=== PATIENT | male | born 1950 | race Asian ===

== ENCOUNTER 2016-05-29 15:25 | Inpatient (IN) | payer MEDICARE, OTHER ==
[~2016-05-29] VITALS: Ht 162.6 cm; Wt 90.3 kg
[2016-05-29] MEDS ORDERED: DEXTROSE 50%-WATER 25 GM/50 ML SYRINGE IVP PRN (19:45)
[2016-05-29] MEDS: ATORVASTATIN CALCIUM 40 MG TABLET PO SCH (21:55)
[2016-05-29] MEDS: ACETAMINOPHEN 325 MG TABLET PO SCH (21:55)
[2016-05-29] MEDS: GABAPENTIN 100 MG CAPSULE PO SCH (21:55)
[2016-05-29] MEDS: DOCUSATE SODIUM 100 MG CAPSULE PO SCH (21:56)
[2016-05-29] MEDS: SENNA 187 MG TABLET PO SCH (21:56)
[2016-05-29] MEDS: OxyCODONE HCL 10 MG ER TABLET PO SCH (21:56)
[2016-05-29] MEDS: HEPARIN SODIUM,PORCINE 5,000 UNITS/ML VIAL SQ SCH (21:57)
[2016-05-29] MEDS: MUPIROCIN CALCIUM 2% 22 GM OINTMENT NASAL SCH (21:57)
[2016-05-29 22:07] LABS: GLUCOSE COMMENT 1 Received Meds; GLUCOSE,POINT OF CARE 150 MG/DL (70-110)
[2016-05-29 22:25] VITALS: BP 94/67
[2016-05-29] MEDS: IBUPROFEN 600 MG TABLET PO SCH (23:56)
[2016-05-30] VITALS: BP 93/55
[2016-05-30] MEDS: DOCUSATE SODIUM 283 MG/5 ML MINI-ENEMA PR PRN (05:40)
[2016-05-30 05:57] LABS: GLUCOSE,POINT OF CARE 138 MG/DL (70-110)
[2016-05-30 07:11] VITALS: BP 115/44
[2016-05-30 07:43] LABS: BASOPHILS % (AUTO) 0.6 % (0.0-2.0); EOSINOPHILS % (AUTO) 9.1 % (1.0-6.0); HEMOGLOBIN 8.5 g/dL (13.5-17.5); LYMPHOCYTES # (AUTO) 2.2 K/uL (1.0-4.8); LYMPHOCYTES % (AUTO) 20.1 % (22.0-44.0); MEAN CORPUSCULAR HEMOGLOBIN 28.7 pg (26.0-34.0); MEAN CORPUSCULAR HGB CONC 31.5 G/dL (31.0-37.0); MEAN CORPUSCULAR VOLUME 91 fL (80-100); MONOCYTES # (AUTO) 1.1 K/uL (0.1-1.0); MONOCYTES % (AUTO) 9.8 % (2.0-9.0); NEUTROPHILS # (AUTO) 6.6 K/uL (1.8-7.7); NEUTROPHILS % (AUTO) 60.4 % (40.0-70.0); PLATELET COUNT (AUTO) 383 K/uL (150-450); RED BLOOD CELL COUNT(AUTO) 2.97 MIL/uL (4.50-5.90); RED CELL DISTRIBUTION WIDTH 20.2 % (11.5-14.5); WHITE BLOOD COUNT (AUTO) 10.9 K/uL (4.5-11.0)
[2016-05-30 08:12] LABS: ALBUMIN 2.4 g/dL (3.4-5.0); BILIRUBIN,TOTAL 0.5 mg/dL (0.1-1.0); CALCIUM, TOTAL 8.2 mg/dL (8.8-10.5); CREATININE 9.05 mg/dL (0.60-1.30); TOTAL PROTEIN, SERUM 7.8 g/dL (6.4-8.2)
[2016-05-30] MEDS: CALCIUM ACETATE 667 MG CAPSULE PO SCH (08:47)
[2016-05-30] MEDS: METOPROLOL SUCCINATE 100 MG ER TABLET PO SCH ×2 (08:48→09:20)
[2016-05-30] MEDS: IBUPROFEN 600 MG TABLET PO SCH ×2 (08:48→16:00)
[2016-05-30] MEDS: OxyCODONE HCL 10 MG ER TABLET PO SCH (08:48)
[2016-05-30] MEDS: ASPIRIN 81 MG CHEWABLE TABLET PO SCH (08:48)
[2016-05-30] MEDS: DOCUSATE SODIUM 100 MG CAPSULE PO SCH ×2 (08:48→20:23)
[2016-05-30] MEDS: MUPIROCIN CALCIUM 2% 22 GM OINTMENT NASAL SCH ×2 (08:49→20:23)
[2016-05-30] MEDS: POLYETHYLENE GLYCOL 3350 17 GM PACKET PO SCH (08:49)
[2016-05-30] MEDS: HEPARIN SODIUM,PORCINE 5,000 UNITS/ML VIAL SQ SCH ×2 (08:49→20:23)
[2016-05-30] MEDS: ACETAMINOPHEN 325 MG TABLET PO SCH ×3 (08:49→20:23)
[2016-05-30] MEDS: INSULIN DETEMIR 100 UNITS/ML SQ SCH (08:51)
[2016-05-30] MEDS: SEVELAMER CARBONATE 800 MG TABLET PO SCH ×3 (08:52→16:50)
[2016-05-30 09:28] LABS: RBC MORPHOLOGY COMMENT ABNORMAL RBC MORPH
[2016-05-30 12:30] VITALS: BP 122/47
[2016-05-30] MEDS: VITAMIN B COMP/VIT C/FOLIC ACID CAPSULE PO SCH (12:55)
[2016-05-30 16:27] VITALS: BP 113/56
[2016-05-30 17:48] LABS: GLUCOSE,POINT OF CARE 154 MG/DL (70-110)
[2016-05-30 17:48] LABS: GLUCOSE COMMENT 1 Received Meds; GLUCOSE,POINT OF CARE 143 MG/DL (70-110)
[2016-05-30] MEDS: INSULIN ASPART 100 UNITS/ML SQ PRN (18:18)
[2016-05-30] MEDS: GABAPENTIN 100 MG CAPSULE PO SCH (20:22)
[2016-05-30] MEDS: SENNA 187 MG TABLET PO SCH (20:23)
[2016-05-30] MEDS: ATORVASTATIN CALCIUM 40 MG TABLET PO SCH (20:23)
[2016-05-30 21:31] LABS: APPEARANCE,URINE CLOUDY (CLEAR); GLUCOSE, URINE (UA) 100 mg/dL (NEGATIVE); KETONES,URINE NEGATIVE (NEGATIVE); LEUKOCYTE ESTERASE ,URINE SMALL (NEGATIVE); OCCULT BLOOD,URINE LARGE (NEGATIVE); PH,URINE 6.5 (5.0-8.0); PROTEIN,URINE SEE CONFIRM (NEGATIVE)
[2016-05-30 21:36] LABS: ADD UA MICROSCOPIC YES
[2016-05-30 21:39] LABS: SULFOSALICYLIC ACID,URINE 2+ (Negative)
[2016-05-30 21:41] LABS: SQUAMOUS EPITHELIAL CELL,UR Many /LPF (None Seen); TRANSITIONAL EPI CELLS,URINE Moderate /LPF (None Seen)
[2016-05-30 21:43] LABS: OTHER CASTS, URINE WAXY CASTS 1+ /LPF (None Seen)
[2016-05-30 23:51] LABS: GLUCOSE,POINT OF CARE 140 MG/DL (70-110)
[2016-05-31 00:45] VITALS: BP 112/69
[2016-05-31] MEDS: DOCUSATE SODIUM 283 MG/5 ML MINI-ENEMA PR PRN (05:39)
[2016-05-31 05:57] LABS: GLUCOSE,POINT OF CARE 99 MG/DL (70-110)
[2016-05-31] MEDS: CALCIUM ACETATE 667 MG CAPSULE PO SCH (07:16)
[2016-05-31] MEDS: SEVELAMER CARBONATE 800 MG TABLET PO SCH ×3 (07:16→18:04)
[2016-05-31 07:17] VITALS: BP 144/74
[2016-05-31] MEDS: IBUPROFEN 600 MG TABLET PO SCH ×4 (07:17→23:31)
[2016-05-31] MEDS: ASPIRIN 81 MG CHEWABLE TABLET PO SCH (09:17)
[2016-05-31] MEDS: DOCUSATE SODIUM 100 MG CAPSULE PO SCH ×2 (09:17→20:34)
[2016-05-31] MEDS: MUPIROCIN CALCIUM 2% 22 GM OINTMENT NASAL SCH ×2 (09:17→20:42)
[2016-05-31] MEDS: HEPARIN SODIUM,PORCINE 5,000 UNITS/ML VIAL SQ SCH ×2 (09:18→20:34)
[2016-05-31] MEDS: POLYETHYLENE GLYCOL 3350 17 GM PACKET PO SCH (09:18)
[2016-05-31] MEDS: VITAMIN B COMP/VIT C/FOLIC ACID CAPSULE PO SCH (09:18)
[2016-05-31] MEDS: ACETAMINOPHEN 325 MG TABLET PO SCH ×3 (09:18→20:34)
[2016-05-31] MEDS: EPOETIN ALFA 10,000 UNITS/ML VIAL SQ SCH (09:19)
[2016-05-31] MEDS: INSULIN DETEMIR 100 UNITS/ML SQ SCH (09:35)
[2016-05-31 12:27] LABS: GLUCOSE,POINT OF CARE 133 MG/DL (70-110)
[2016-05-31 15:15] VITALS: BP 135/70
[2016-05-31 18:07] LABS: GLUCOSE,POINT OF CARE 114 MG/DL (70-110)
[2016-05-31] MEDS: ATORVASTATIN CALCIUM 40 MG TABLET PO SCH (20:33)
[2016-05-31] MEDS: GABAPENTIN 100 MG CAPSULE PO SCH (20:33)
[2016-05-31] MEDS: SENNA 187 MG TABLET PO SCH (20:34)
[2016-05-31] MEDS: INSULIN ASPART 100 UNITS/ML SQ PRN (20:40)
[2016-05-31 21:22] LABS: GLUCOSE COMMENT 1 Received Meds; GLUCOSE,POINT OF CARE 162 MG/DL (70-110)
[2016-06-01 00:59] VITALS: BP 118/64
[2016-06-01] MEDS: DOCUSATE SODIUM 283 MG/5 ML MINI-ENEMA PR PRN (04:23)
[2016-06-01 06:22] LABS: GLUCOSE,POINT OF CARE 116 MG/DL (70-110)
[2016-06-01 06:52] LABS: BASOPHILS % (AUTO) 0.4 % (0.0-2.0); EOSINOPHILS % (AUTO) 6.4 % (1.0-6.0); HEMATOCRIT 26.6 % (41-53); HEMOGLOBIN 8.4 g/dL (13.5-17.5); LYMPHOCYTES % (AUTO) 14.3 % (22.0-44.0); MEAN CORPUSCULAR HEMOGLOBIN 28.6 pg (26.0-34.0); MEAN CORPUSCULAR HGB CONC 31.6 G/dL (31.0-37.0); MEAN CORPUSCULAR VOLUME 91 fL (80-100); MONOCYTES # (AUTO) 1.5 K/uL (0.1-1.0); MONOCYTES % (AUTO) 10.6 % (2.0-9.0); NEUTROPHILS # (AUTO) 9.6 K/uL (1.8-7.7); NEUTROPHILS % (AUTO) 68.3 % (40.0-70.0); PLATELET COUNT (AUTO) 358 K/uL (150-450); RED BLOOD CELL COUNT(AUTO) 2.94 MIL/uL (4.50-5.90); RED CELL DISTRIBUTION WIDTH 21.9 % (11.5-14.5)
[2016-06-01] MEDS ORDERED: LIDOCAINE HCL/PF 1% 2 ML VIAL IM ONE (06:58)
[2016-06-01 07:15] LABS: HEMOGLOBIN A1C 6.9 % (4.5-6.2)
[2016-06-01 07:24] LABS: CALCIUM, TOTAL 8.3 mg/dL (8.8-10.5); MAGNESIUM 2.3 mg/dL (1.80-2.40); PHOSPHORUS 8.4 mg/dL (2.5-4.9)
[2016-06-01 07:25] VITALS: BP 119/68
[2016-06-01] MEDS: CALCIUM ACETATE 667 MG CAPSULE PO SCH (07:25)
[2016-06-01] MEDS: IBUPROFEN 600 MG TABLET PO SCH (07:25)
[2016-06-01] MEDS: SEVELAMER CARBONATE 800 MG TABLET PO SCH ×3 (07:25→17:51)
[2016-06-01 07:42] LABS: POTASSIUM 5.2 mmol/L (3.5-5.1)
[2016-06-01] MEDS ORDERED: SODIUM CHLORIDE 0.9% 100 ML ONE (08:36)
[2016-06-01] MEDS: POLYETHYLENE GLYCOL 3350 17 GM PACKET PO SCH (08:45)
[2016-06-01] MEDS: ASPIRIN 81 MG CHEWABLE TABLET PO SCH (08:46)
[2016-06-01] MEDS: VITAMIN B COMP/VIT C/FOLIC ACID CAPSULE PO SCH (08:46)
[2016-06-01] MEDS: METOPROLOL SUCCINATE 100 MG ER TABLET PO SCH (08:46)
[2016-06-01] MEDS: DOCUSATE SODIUM 100 MG CAPSULE PO SCH ×2 (08:46→22:01)
[2016-06-01] MEDS: HEPARIN SODIUM,PORCINE 5,000 UNITS/ML VIAL SQ SCH ×2 (08:46→22:02)
[2016-06-01] MEDS: MUPIROCIN CALCIUM 2% 22 GM OINTMENT NASAL SCH ×2 (08:47→22:01)
[2016-06-01] MEDS: ACETAMINOPHEN 325 MG TABLET PO SCH ×4 (08:47→22:02)
[2016-06-01] MEDS: INSULIN DETEMIR 100 UNITS/ML SQ SCH (08:49)
[2016-06-01] MEDS ORDERED: SODIUM CHLORIDE 0.9% 1,000 ML IV ONE ×2 (13:01)
[2016-06-01 13:02] LABS: RBC MORPHOLOGY COMMENT ABNORMAL RBC MORPH
[2016-06-01] MEDS ORDERED: 0.9% SODIUM CHLORIDE 10 ML SYRINGE IVP PRN (14:15)
[2016-06-01 15:00] VITALS: BP 117/60
[2016-06-01] MEDS ORDERED: IBUPROFEN 600 MG TABLET PO PRN (16:00)
[2016-06-01 17:46] LABS: GLUCOSE,POINT OF CARE 98 MG/DL (70-110)
[2016-06-01] MEDS: SOD FERRIC GLUC COMPLX/SUCROSE 125 MG in SODIUM CHLORIDE 0.9% 100 ML IV SCH (19:12)
[2016-06-01] MEDS ORDERED: LIDOCAINE HCL/PF 1% 2 ML VIAL ID PRN (19:15)
[2016-06-01] MEDS ORDERED: MANNITOL 25%-12.5 GM/50 ML VIAL IVP PRN (19:15)
[2016-06-01 21:07] LABS: GLUCOSE,POINT OF CARE 122 MG/DL (70-110)
[2016-06-01 21:17] LABS: GLUCOSE,POINT OF CARE 118 MG/DL (70-110)
[2016-06-01] MEDS: GABAPENTIN 100 MG CAPSULE PO SCH (22:01)
[2016-06-01] MEDS: SENNA 187 MG TABLET PO SCH (22:01)
[2016-06-01] MEDS: ATORVASTATIN CALCIUM 40 MG TABLET PO SCH (22:01)
[2016-06-02] VITALS: BP 136/59
[2016-06-02] MEDS ORDERED: SEVEC800 PO (03:09)
[2016-06-02] MEDS ORDERED: METO-325 PO (03:09)
[2016-06-02] MEDS ORDERED: GABA-529 PO (03:09)
[2016-06-02] MEDS ORDERED: ATOR40TA28 PO (03:09)
[2016-06-02] MEDS ORDERED: ASPI81 PO (03:09)
[2016-06-02] MEDS ORDERED: PHOSLOC PO (03:09)
[2016-06-02] MEDS: OxyCODONE HCL 5 MG IR TABLET PO PRN (05:33)
[2016-06-02 05:43] LABS: GLUCOSE,POINT OF CARE 87 MG/DL (70-110)
[2016-06-02 07:35] VITALS: BP 138/47
[2016-06-02] MEDS: SEVELAMER CARBONATE 800 MG TABLET PO SCH ×4 (08:30→17:53)
[2016-06-02] MEDS: CALCIUM ACETATE 667 MG CAPSULE PO SCH (08:35)
[2016-06-02] MEDS: ACETAMINOPHEN 325 MG TABLET PO SCH ×3 (08:35→20:26)
[2016-06-02] MEDS: MUPIROCIN CALCIUM 2% 22 GM OINTMENT NASAL SCH ×2 (08:41→20:25)
[2016-06-02] MEDS: DOCUSATE SODIUM 100 MG CAPSULE PO SCH ×3 (08:41→20:25)
[2016-06-02] MEDS: ASPIRIN 81 MG CHEWABLE TABLET PO SCH (08:41)
[2016-06-02] MEDS: POLYETHYLENE GLYCOL 3350 17 GM PACKET PO SCH ×2 (08:41→09:00)
[2016-06-02] MEDS: EPOETIN ALFA 10,000 UNITS/ML VIAL SQ SCH (08:41)
[2016-06-02] MEDS: HEPARIN SODIUM,PORCINE 5,000 UNITS/ML VIAL SQ SCH (08:41)
[2016-06-02] MEDS: VITAMIN B COMP/VIT C/FOLIC ACID CAPSULE PO SCH (08:42)
[2016-06-02] MEDS: METOPROLOL SUCCINATE 100 MG ER TABLET PO SCH (08:42)
[2016-06-02] MEDS: INSULIN DETEMIR 100 UNITS/ML SQ SCH (09:00)
[2016-06-02] MEDS: ONDANSETRON HCL 4 MG TABLET PO PRN (09:27)
[2016-06-02] MEDS ORDERED: MAG HYDROX/AL HYDROX/SIMETH 30 ML SUSP UDCUP PO ONE (09:30)
[2016-06-02] MEDS: PANTOPRAZOLE SODIUM 40 MG DR TABLET PO SCH (10:29)
[2016-06-02] MEDS: 0.9% SODIUM CHLORIDE 10 ML SYRINGE IVP SCH ×3 (10:29→23:17)
[2016-06-02] MEDS: TraMADol HCL 50 MG TABLET PO PRN (10:29)
[2016-06-02 11:32] LABS: BASOPHILS % (AUTO) 0.1 % (0.0-2.0); EOSINOPHILS % (AUTO) 3.3 % (1.0-6.0); HEMATOCRIT 27.1 % (41-53); HEMOGLOBIN 8.4 g/dL (13.5-17.5); LYMPHOCYTES # (AUTO) 1.7 K/uL (1.0-4.8); LYMPHOCYTES % (AUTO) 12.2 % (22.0-44.0); MEAN CORPUSCULAR HEMOGLOBIN 28.3 pg (26.0-34.0); MEAN CORPUSCULAR VOLUME 91 fL (80-100); MONOCYTES # (AUTO) 1.3 K/uL (0.1-1.0); MONOCYTES % (AUTO) 9.7 % (2.0-9.0); NEUTROPHILS # (AUTO) 10.4 K/uL (1.8-7.7); NEUTROPHILS % (AUTO) 74.7 % (40.0-70.0); PLATELET COUNT (AUTO) 327 K/uL (150-450); RBC MORPHOLOGY COMMENT ABNORMAL RBC MORPH; RED BLOOD CELL COUNT(AUTO) 2.97 MIL/uL (4.50-5.90); RED CELL DISTRIBUTION WIDTH 21.6 % (11.5-14.5); WHITE BLOOD COUNT (AUTO) 13.9 K/uL (4.5-11.0)
[2016-06-02 12:13] LABS: GLUCOSE,POINT OF CARE 137 MG/DL (70-110)
[2016-06-02 12:30] VITALS: BP 127/93
[2016-06-02 15:30] VITALS: BP 105/74
[2016-06-02] MEDS: SOD FERRIC GLUC COMPLX/SUCROSE 125 MG in SODIUM CHLORIDE 0.9% 100 ML IV SCH (17:53)
[2016-06-02] MEDS ORDERED: SODIUM CHLORIDE 0.9% 250 ML IV ONE (17:56)
[2016-06-02] MEDS: INSULIN ASPART 100 UNITS/ML SQ PRN ×2 (18:08→22:46)
[2016-06-02 18:56] VITALS: BP 105/74
[2016-06-02] MEDS: SENNA 187 MG TABLET PO SCH (20:25)
[2016-06-02] MEDS: GABAPENTIN 100 MG CAPSULE PO SCH (20:26)
[2016-06-02] MEDS: ATORVASTATIN CALCIUM 40 MG TABLET PO SCH (20:26)
[2016-06-02 22:52] LABS: GLUCOSE COMMENT 1 Received Meds; GLUCOSE,POINT OF CARE 158 MG/DL (70-110)
[2016-06-02 22:52] LABS: GLUCOSE COMMENT 1 Received Meds; GLUCOSE,POINT OF CARE 195 MG/DL (70-110)
[2016-06-03] VITALS: BP 103/77
[2016-06-03 02:29] VITALS: BP 103/77
[2016-06-03 06:06] LABS: GLUCOSE,POINT OF CARE 114 MG/DL (70-110)
[2016-06-03 07:00] VITALS: BP 104/54
[2016-06-03 07:15] LABS: BASOPHILS % (AUTO) 0.7 % (0.0-2.0); EOSINOPHILS # (AUTO) 0.69 K/uL (0.00-0.70); EOSINOPHILS % (AUTO) 4.56 % (1.0-6.0); HEMATOCRIT 26.6 % (41-53); HEMOGLOBIN 8.6 g/dL (13.5-17.5); LYMPHOCYTES # (AUTO) 2.2 K/uL (1.0-4.8); LYMPHOCYTES % (AUTO) 14.7 % (22.0-44.0); MEAN CORPUSCULAR HGB CONC 32.4 G/dL (31.0-37.0); MEAN CORPUSCULAR VOLUME 89 fL (80-100); MONOCYTES # (AUTO) 1.7 K/uL (0.1-1.0); MONOCYTES % (AUTO) 11.4 % (2.0-9.0); NEUTROPHILS # (AUTO) 10.4 K/uL (1.8-7.7); NEUTROPHILS % (AUTO) 68.7 % (40.0-70.0); PLATELET COUNT (AUTO) 319 K/uL (150-450); RED BLOOD CELL COUNT(AUTO) 2.97 MIL/uL (4.50-5.90); RED CELL DISTRIBUTION WIDTH 20.7 % (11.5-14.5); WHITE BLOOD COUNT (AUTO) 15.1 K/uL (4.5-11.0)
[2016-06-03 07:30] LABS: ALBUMIN 2.2 g/dL (3.4-5.0); BILIRUBIN,TOTAL 0.5 mg/dL (0.1-1.0); CREATININE 10.2 mg/dL (0.60-1.30); POTASSIUM 5.2 mmol/L (3.5-5.1); TOTAL PROTEIN, SERUM 7.9 g/dL (6.4-8.2)
[2016-06-03 07:41] LABS: PROCALCITONIN (PCT) 1.43 ng/mL (<0.50)
[2016-06-03] MEDS: CALCIUM ACETATE 667 MG CAPSULE PO SCH (07:51)
[2016-06-03] MEDS: SEVELAMER CARBONATE 800 MG TABLET PO SCH ×3 (07:51→17:09)
[2016-06-03] MEDS: METOPROLOL SUCCINATE 100 MG ER TABLET PO SCH (09:00)
[2016-06-03] MEDS: POLYETHYLENE GLYCOL 3350 17 GM PACKET PO SCH (09:00)
[2016-06-03] MEDS: PANTOPRAZOLE SODIUM 40 MG DR TABLET PO SCH (09:12)
[2016-06-03] MEDS: DOCUSATE SODIUM 100 MG CAPSULE PO SCH ×2 (09:12→20:56)
[2016-06-03] MEDS: ACETAMINOPHEN 325 MG TABLET PO SCH ×3 (09:12→20:56)
[2016-06-03] MEDS: VITAMIN B COMP/VIT C/FOLIC ACID CAPSULE PO SCH (09:12)
[2016-06-03] MEDS: ASPIRIN 81 MG CHEWABLE TABLET PO SCH (09:12)
[2016-06-03] MEDS: MUPIROCIN CALCIUM 2% 22 GM OINTMENT NASAL SCH ×2 (09:12→20:56)
[2016-06-03] MEDS: 0.9% SODIUM CHLORIDE 10 ML SYRINGE IVP SCH ×2 (09:12→16:10)
[2016-06-03] MEDS: INSULIN DETEMIR 100 UNITS/ML SQ SCH (09:18)
[2016-06-03 09:43] LABS: RBC MORPHOLOGY COMMENT ABNORMAL RBC MORPH
[2016-06-03 10:12] LABS: APPEARANCE,URINE CLOUDY (CLEAR); GLUCOSE, URINE (UA) 100 mg/dL (NEGATIVE); KETONES,URINE NEGATIVE (NEGATIVE); LEUKOCYTE ESTERASE ,URINE NEGATIVE (NEGATIVE); OCCULT BLOOD,URINE MODERATE (NEGATIVE); PROTEIN,URINE SEE CONFIRM (NEGATIVE)
[2016-06-03 10:16] LABS: SULFOSALICYLIC ACID,URINE 3+ (Negative)
[2016-06-03 10:18] LABS: SQUAMOUS EPITHELIAL CELL,UR Few /LPF (None Seen)
[2016-06-03 10:19] LABS: COARSE GRANULAR CASTS,URINE 0-2 /LPF (None Seen)
[2016-06-03 10:20] LABS: FINE GRANULAR CASTS,URINE 0-2 /LPF (None Seen)
[2016-06-03 11:01] VITALS: BP 104/54
[2016-06-03] MEDS ORDERED: IOVERSOL 350 MG/ML 150 ML VIAL ONE (12:00)
[2016-06-03] MEDS ORDERED: SODIUM CHLORIDE 0.9% 100 ML ONE (12:00)
[2016-06-03 12:07] LABS: GLUCOSE,POINT OF CARE 159 MG/DL (70-110)
[2016-06-03] MEDS: INSULIN ASPART 100 UNITS/ML SQ PRN ×2 (12:36→17:26)
[2016-06-03 15:30] VITALS: BP 119/68
[2016-06-03 15:42] VITALS: BP 119/68
[2016-06-03] MEDS ORDERED: LIDOCAINE HCL/PF 1% 2 ML VIAL IM ONE (16:17)
[2016-06-03] MEDS: SOD FERRIC GLUC COMPLX/SUCROSE 125 MG in SODIUM CHLORIDE 0.9% 100 ML IV SCH (17:09)
[2016-06-03 18:27] LABS: GLUCOSE COMMENT 1 Received Meds; GLUCOSE,POINT OF CARE 168 MG/DL (70-110)
[2016-06-03] MEDS ORDERED: SODIUM CHLORIDE 0.9% 1,000 ML IV ONE ×2 (18:27)
[2016-06-03] MEDS ORDERED: VANCOMYCIN HCL 1.5 GM in DEXTROSE 5%-WATER 250 ML IV ONE (18:30)
[2016-06-03] MEDS: SENNA 187 MG TABLET PO SCH (20:56)
[2016-06-03] MEDS: GABAPENTIN 100 MG CAPSULE PO SCH (20:56)
[2016-06-03] MEDS: ATORVASTATIN CALCIUM 40 MG TABLET PO SCH (20:56)
[2016-06-03 22:06] LABS: GLUCOSE,POINT OF CARE 130 MG/DL (70-110)
[2016-06-03] MEDS: CefTAZidime PENTAHYDRATE 2 GM in DEXTROSE 5%-WATER 50 ML IV SCH (22:34)
[2016-06-04] VITALS (7 sets, daily range): BP systolic 111–128; BP diastolic 64–96
[2016-06-04] MEDS: 0.9% SODIUM CHLORIDE 10 ML SYRINGE IVP SCH ×3 (02:20→16:14)
[2016-06-04 06:07] LABS: GLUCOSE,POINT OF CARE 74 MG/DL (70-110)
[2016-06-04 07:26] LABS: BASOPHILS % (AUTO) 0.3 % (0.0-2.0); EOSINOPHILS % (AUTO) 3.7 % (1.0-6.0); HEMATOCRIT 26.2 % (41-53); HEMOGLOBIN 8.3 g/dL (13.5-17.5); LYMPHOCYTES # (AUTO) 1.6 K/uL (1.0-4.8); LYMPHOCYTES % (AUTO) 12.1 % (22.0-44.0); MEAN CORPUSCULAR HEMOGLOBIN 28.4 pg (26.0-34.0); MEAN CORPUSCULAR HGB CONC 31.5 G/dL (31.0-37.0); MEAN CORPUSCULAR VOLUME 90 fL (80-100); MONOCYTES # (AUTO) 1.7 K/uL (0.1-1.0); MONOCYTES % (AUTO) 12.9 % (2.0-9.0); NEUTROPHILS # (AUTO) 9.2 K/uL (1.8-7.7); PLATELET COUNT (AUTO) 341 K/uL (150-450); RED BLOOD CELL COUNT(AUTO) 2.91 MIL/uL (4.50-5.90); RED CELL DISTRIBUTION WIDTH 21.3 % (11.5-14.5)
[2016-06-04] MEDS: DOCUSATE SODIUM 100 MG CAPSULE PO SCH ×2 (08:13→20:11)
[2016-06-04] MEDS: VITAMIN B COMP/VIT C/FOLIC ACID CAPSULE PO SCH (08:14)
[2016-06-04] MEDS: ASPIRIN 81 MG CHEWABLE TABLET PO SCH (08:15)
[2016-06-04] MEDS: PANTOPRAZOLE SODIUM 40 MG DR TABLET PO SCH (08:15)
[2016-06-04] MEDS: SEVELAMER CARBONATE 800 MG TABLET PO SCH ×3 (08:17→18:31)
[2016-06-04] MEDS: METOPROLOL SUCCINATE 100 MG ER TABLET PO SCH (08:17)
[2016-06-04] MEDS: ACETAMINOPHEN 325 MG TABLET PO SCH ×3 (08:18→20:11)
[2016-06-04] MEDS: CALCIUM ACETATE 667 MG CAPSULE PO SCH (08:19)
[2016-06-04] MEDS: POLYETHYLENE GLYCOL 3350 17 GM PACKET PO SCH (08:19)
[2016-06-04] MEDS: MUPIROCIN CALCIUM 2% 22 GM OINTMENT NASAL SCH ×2 (08:19→20:13)
[2016-06-04] MEDS: INSULIN DETEMIR 100 UNITS/ML SQ SCH (08:27)
[2016-06-04] MEDS: INSULIN ASPART 100 UNITS/ML SQ PRN ×2 (12:55→20:22)
[2016-06-04] MEDS: TraMADol HCL 50 MG TABLET PO PRN (12:55)
[2016-06-04 13:01] LABS: GLUCOSE COMMENT 1 Received Meds; GLUCOSE,POINT OF CARE 152 MG/DL (70-110)
[2016-06-04] MEDS ORDERED: VANCOMYCIN HCL 1 GM/D5% WATER 200 ML IV PRN (18:30)
[2016-06-04] MEDS: SOD FERRIC GLUC COMPLX/SUCROSE 125 MG in SODIUM CHLORIDE 0.9% 100 ML IV SCH (18:32)
[2016-06-04 18:42] LABS: GLUCOSE,POINT OF CARE 70 MG/DL (70-110)
[2016-06-04] MEDS: CefTAZidime PENTAHYDRATE 2 GM in DEXTROSE 5%-WATER 50 ML IV SCH (19:50)
[2016-06-04] MEDS: SENNA 187 MG TABLET PO SCH (20:11)
[2016-06-04] MEDS: ATORVASTATIN CALCIUM 40 MG TABLET PO SCH (20:12)
[2016-06-04] MEDS: GABAPENTIN 100 MG CAPSULE PO SCH (20:12)
[2016-06-04 20:42] LABS: GLUCOSE COMMENT 1 Received Meds; GLUCOSE,POINT OF CARE 176 MG/DL (70-110)
[2016-06-05 00:14] VITALS: BP 109/72
[2016-06-05] MEDS: 0.9% SODIUM CHLORIDE 10 ML SYRINGE IVP SCH ×3 (00:16→16:29)
[2016-06-05 01:20] VITALS: BP 109/72
[2016-06-05 06:32] LABS: GLUCOSE,POINT OF CARE 108 MG/DL (70-110)
[2016-06-05 07:30] VITALS: BP 118/69
[2016-06-05] MEDS: CALCIUM ACETATE 667 MG CAPSULE PO SCH (07:56)
[2016-06-05] MEDS: SEVELAMER CARBONATE 800 MG TABLET PO SCH ×3 (07:56→17:30)
[2016-06-05] MEDS: EPOETIN ALFA 10,000 UNITS/ML VIAL SQ SCH (08:45)
[2016-06-05] MEDS: ASPIRIN 81 MG CHEWABLE TABLET PO SCH (08:45)
[2016-06-05] MEDS: VITAMIN B COMP/VIT C/FOLIC ACID CAPSULE PO SCH (08:46)
[2016-06-05] MEDS: PANTOPRAZOLE SODIUM 40 MG DR TABLET PO SCH (08:46)
[2016-06-05] MEDS: METOPROLOL SUCCINATE 100 MG ER TABLET PO SCH (08:46)
[2016-06-05] MEDS: POLYETHYLENE GLYCOL 3350 17 GM PACKET PO SCH (08:47)
[2016-06-05] MEDS: ACETAMINOPHEN 325 MG TABLET PO SCH ×3 (08:47→20:05)
[2016-06-05] MEDS: DOCUSATE SODIUM 100 MG CAPSULE PO SCH ×2 (08:47→20:05)
[2016-06-05] MEDS: INSULIN DETEMIR 100 UNITS/ML SQ SCH (08:53)
[2016-06-05 12:07] LABS: GLUCOSE,POINT OF CARE 158 MG/DL (70-110)
[2016-06-05 12:38] VITALS: BP 118/69
[2016-06-05] MEDS: INSULIN ASPART 100 UNITS/ML SQ PRN (13:18)
[2016-06-05 15:35] VITALS: BP 110/62
[2016-06-05 15:39] VITALS: BP 110/62
[2016-06-05] MEDS: SOD FERRIC GLUC COMPLX/SUCROSE 125 MG in SODIUM CHLORIDE 0.9% 100 ML IV SCH (17:31)
[2016-06-05 18:52] LABS: GLUCOSE,POINT OF CARE 84 MG/DL (70-110)
[2016-06-05] MEDS: CefTRIAXone SODIUM 2 GM in DEXTROSE 5%-WATER 50 ML IV SCH (19:59)
[2016-06-05] MEDS: SENNA 187 MG TABLET PO SCH (20:05)
[2016-06-05] MEDS: GABAPENTIN 100 MG CAPSULE PO SCH (20:05)
[2016-06-05] MEDS: ATORVASTATIN CALCIUM 40 MG TABLET PO SCH (20:05)
[2016-06-05 21:12] LABS: GLUCOSE,POINT OF CARE 104 MG/DL (70-110)
[2016-06-06] MEDS: 0.9% SODIUM CHLORIDE 10 ML SYRINGE IVP SCH ×4 (02:35→16:24)
[2016-06-06 02:45] VITALS: BP 103/56
[2016-06-06 06:07] LABS: GLUCOSE COMMENT 1 Juice/Food/D50 Given; GLUCOSE,POINT OF CARE 69 MG/DL (70-110)
[2016-06-06 06:42] LABS: GLUCOSE,POINT OF CARE 86 MG/DL (70-110)
[2016-06-06 06:51] LABS: BASOPHILS % (AUTO) 0.2 % (0.0-2.0); EOSINOPHILS % (AUTO) 3.5 % (1.0-6.0); HEMATOCRIT 27.5 % (41-53); HEMOGLOBIN 8.7 g/dL (13.5-17.5); LYMPHOCYTES # (AUTO) 2.7 K/uL (1.0-4.8); LYMPHOCYTES % (AUTO) 14.5 % (22.0-44.0); MEAN CORPUSCULAR HEMOGLOBIN 28.7 pg (26.0-34.0); MEAN CORPUSCULAR HGB CONC 31.6 G/dL (31.0-37.0); MEAN CORPUSCULAR VOLUME 91 fL (80-100); MONOCYTES # (AUTO) 2.3 K/uL (0.1-1.0); MONOCYTES % (AUTO) 12.6 % (2.0-9.0); NEUTROPHILS # (AUTO) 12.9 K/uL (1.8-7.7); NEUTROPHILS % (AUTO) 69.2 % (40.0-70.0); PLATELET COUNT (AUTO) 334 K/uL (150-450); RED BLOOD CELL COUNT(AUTO) 3.03 MIL/uL (4.50-5.90); RED CELL DISTRIBUTION WIDTH 21.8 % (11.5-14.5); WHITE BLOOD COUNT (AUTO) 18.6 K/uL (4.5-11.0)
[2016-06-06 07:16] VITALS: BP 131/64
[2016-06-06 07:34] LABS: CALCIUM, TOTAL 9.4 mg/dL (8.8-10.5); CREATININE 10.75 mg/dL (0.60-1.30); MAGNESIUM 2.2 mg/dL (1.80-2.40); PHOSPHORUS 5.9 mg/dL (2.5-4.9)
[2016-06-06] MEDS: SEVELAMER CARBONATE 800 MG TABLET PO SCH ×3 (07:35→17:27)
[2016-06-06] MEDS: CALCIUM ACETATE 667 MG CAPSULE PO SCH (07:35)
[2016-06-06] MEDS: ACETAMINOPHEN 325 MG TABLET PO SCH ×3 (08:01→20:30)
[2016-06-06] MEDS: METOPROLOL SUCCINATE 100 MG ER TABLET PO SCH (08:02)
[2016-06-06] MEDS: VITAMIN B COMP/VIT C/FOLIC ACID CAPSULE PO SCH (08:02)
[2016-06-06] MEDS: ASPIRIN 81 MG CHEWABLE TABLET PO SCH (08:02)
[2016-06-06] MEDS: PANTOPRAZOLE SODIUM 40 MG DR TABLET PO SCH (08:02)
[2016-06-06] MEDS: POLYETHYLENE GLYCOL 3350 17 GM PACKET PO SCH (08:02)
[2016-06-06] MEDS: DOCUSATE SODIUM 100 MG CAPSULE PO SCH ×2 (08:02→20:30)
[2016-06-06] MEDS: INSULIN DETEMIR 100 UNITS/ML SQ SCH (08:17)
[2016-06-06 09:53] LABS: RBC MORPHOLOGY COMMENT ABNORMAL RBC MORPH
[2016-06-06 11:38] LABS: GLUCOSE,POINT OF CARE 106 MG/DL (70-110)
[2016-06-06] MEDS ORDERED: SODIUM CHLORIDE 0.9% 1,000 ML IV ONE ×2 (13:01→13:02)
[2016-06-06 15:39] VITALS: BP 137/91
[2016-06-06] MEDS: SOD FERRIC GLUC COMPLX/SUCROSE 125 MG in SODIUM CHLORIDE 0.9% 100 ML IV SCH (17:28)
[2016-06-06 17:46] LABS: GLUCOSE,POINT OF CARE 132 MG/DL (70-110)
[2016-06-06] MEDS ORDERED: VANCOMYCIN HCL 1 GM/D5% WATER 200 ML IV ONE (20:00)
[2016-06-06] MEDS: SENNA 187 MG TABLET PO SCH (20:30)
[2016-06-06] MEDS: CefTRIAXone SODIUM 2 GM in DEXTROSE 5%-WATER 50 ML IV SCH (20:30)
[2016-06-06] MEDS: ATORVASTATIN CALCIUM 40 MG TABLET PO SCH (20:30)
[2016-06-06] MEDS: GABAPENTIN 100 MG CAPSULE PO SCH (20:31)
[2016-06-06] MEDS: INSULIN ASPART 100 UNITS/ML SQ PRN (20:37)
[2016-06-06] MEDS: MetroNIDAZOLE 500 MG TABLET PO SCH (20:48)
[2016-06-06 21:46] LABS: GLUCOSE COMMENT 1 Received Meds; GLUCOSE,POINT OF CARE 164 MG/DL (70-110)
[2016-06-07] MEDS: 0.9% SODIUM CHLORIDE 10 ML SYRINGE IVP SCH ×4 (00:14→23:39)
[2016-06-07 05:00] VITALS: BP 115/60
[2016-06-07 05:42] LABS: GLUCOSE,POINT OF CARE 133 MG/DL (70-110)
[2016-06-07 06:34] LABS: BASOPHILS # (AUTO) 0.24 K/uL (0.00-0.20); BASOPHILS % (AUTO) 1.5 % (0.0-2.0); EOSINOPHILS # (AUTO) 0.64 K/uL (0.00-0.70); EOSINOPHILS % (AUTO) 3.97 % (1.0-6.0); HEMATOCRIT 26.9 % (41-53); HEMOGLOBIN 8.7 g/dL (13.5-17.5); LYMPHOCYTES # (AUTO) 1.8 K/uL (1.0-4.8); LYMPHOCYTES % (AUTO) 11.1 % (22.0-44.0); MEAN CORPUSCULAR HEMOGLOBIN 28.6 pg (26.0-34.0); MEAN CORPUSCULAR HGB CONC 32.2 G/dL (31.0-37.0); MEAN CORPUSCULAR VOLUME 89 fL (80-100); MONOCYTES % (AUTO) 12.5 % (2.0-9.0); NEUTROPHILS # (AUTO) 11.4 K/uL (1.8-7.7); NEUTROPHILS % (AUTO) 70.9 % (40.0-70.0); PLATELET COUNT (AUTO) 309 K/uL (150-450); RED BLOOD CELL COUNT(AUTO) 3.03 MIL/uL (4.50-5.90); RED CELL DISTRIBUTION WIDTH 21.9 % (11.5-14.5); WHITE BLOOD COUNT (AUTO) 16.1 K/uL (4.5-11.0)
[2016-06-07 07:05] LABS: RBC MORPHOLOGY COMMENT ABNORMAL RBC MORPH
[2016-06-07 07:26] VITALS: BP 130/82
[2016-06-07] MEDS: SEVELAMER CARBONATE 800 MG TABLET PO SCH ×4 (07:30→17:35)
[2016-06-07] MEDS: TraMADol HCL 50 MG TABLET PO PRN (07:43)
[2016-06-07] MEDS: CALCIUM ACETATE 667 MG CAPSULE PO SCH (07:43)
[2016-06-07] MEDS: MetroNIDAZOLE 500 MG TABLET PO SCH ×3 (08:16→20:39)
[2016-06-07] MEDS: ACETAMINOPHEN 325 MG TABLET PO SCH ×3 (08:16→20:39)
[2016-06-07] MEDS: ASPIRIN 81 MG CHEWABLE TABLET PO SCH (08:16)
[2016-06-07] MEDS: VITAMIN B COMP/VIT C/FOLIC ACID CAPSULE PO SCH (08:16)
[2016-06-07] MEDS: METOPROLOL SUCCINATE 100 MG ER TABLET PO SCH (08:16)
[2016-06-07] MEDS: POLYETHYLENE GLYCOL 3350 17 GM PACKET PO SCH (08:17)
[2016-06-07] MEDS: DOCUSATE SODIUM 100 MG CAPSULE PO SCH ×2 (08:17→20:39)
[2016-06-07] MEDS: PANTOPRAZOLE SODIUM 40 MG DR TABLET PO SCH (08:17)
[2016-06-07] MEDS: EPOETIN ALFA 10,000 UNITS/ML VIAL SQ SCH (08:18)
[2016-06-07] MEDS: INSULIN DETEMIR 100 UNITS/ML SQ SCH (08:18)
[2016-06-07 12:47] LABS: GLUCOSE,POINT OF CARE 178 MG/DL (70-110)
[2016-06-07 17:03] VITALS: BP 142/80
[2016-06-07] MEDS: SOD FERRIC GLUC COMPLX/SUCROSE 125 MG in SODIUM CHLORIDE 0.9% 100 ML IV SCH (17:34)
[2016-06-07] MEDS ORDERED: SODIUM CHLORIDE 0.9% 250 ML IV ONE (17:40)
[2016-06-07 18:07] LABS: GLUCOSE COMMENT 1 Received Meds; GLUCOSE,POINT OF CARE 176 MG/DL (70-110)
[2016-06-07] MEDS: GABAPENTIN 100 MG CAPSULE PO SCH (20:39)
[2016-06-07] MEDS: SENNA 187 MG TABLET PO SCH (20:39)
[2016-06-07] MEDS: ATORVASTATIN CALCIUM 40 MG TABLET PO SCH (20:39)
[2016-06-07] MEDS: CefTRIAXone SODIUM 2 GM in DEXTROSE 5%-WATER 50 ML IV SCH (20:39)
[2016-06-07 21:12] LABS: GLUCOSE,POINT OF CARE 179 MG/DL (70-110)
[2016-06-07 23:47] VITALS: BP 118/68
[2016-06-08] MEDS: ATORVASTATIN CALCIUM 40 MG TABLET PO SCH
[2016-06-08 05:57] LABS: GLUCOSE,POINT OF CARE 132 MG/DL (70-110)
[2016-06-08 07:03] VITALS: BP 133/74
[2016-06-08] MEDS: SEVELAMER CARBONATE 800 MG TABLET PO SCH ×3 (07:30→17:00)
[2016-06-08] MEDS: CALCIUM ACETATE 667 MG CAPSULE PO SCH (07:30)
[2016-06-08] MEDS: ACETAMINOPHEN 325 MG TABLET PO SCH ×3 (07:35→16:51)
[2016-06-08] MEDS: 0.9% SODIUM CHLORIDE 10 ML SYRINGE IVP SCH ×3 (07:58→16:52)
[2016-06-08] MEDS: POLYETHYLENE GLYCOL 3350 17 GM PACKET PO SCH (09:00)
[2016-06-08] MEDS: DOCUSATE SODIUM 100 MG CAPSULE PO SCH ×2 (09:00)
[2016-06-08] MEDS: VITAMIN B COMP/VIT C/FOLIC ACID CAPSULE PO SCH (09:00)
[2016-06-08] MEDS: METOPROLOL SUCCINATE 100 MG ER TABLET PO SCH (09:00)
[2016-06-08] MEDS: ASPIRIN 81 MG CHEWABLE TABLET PO SCH (09:00)
[2016-06-08] MEDS: MetroNIDAZOLE 500 MG TABLET PO SCH ×2 (09:00→16:51)
[2016-06-08 09:10] VITALS: BP 136/79
[2016-06-08] MEDS: PANTOPRAZOLE SODIUM 40 MG DR TABLET PO SCH (09:10)
[2016-06-08] MEDS: ONDANSETRON HCL 4 MG TABLET PO PRN (09:10)
[2016-06-08 11:22] LABS: GLUCOSE,POINT OF CARE 155 MG/DL (70-110)
[2016-06-08] MEDS ORDERED: LIDOCAINE HCL/PF 1% 2 ML VIAL INJ ONE (12:00)
[2016-06-08 14:50] VITALS: BP 143/83
[2016-06-08 16:50] VITALS: BP 143/83
[2016-06-08 17:27] LABS: GLUCOSE,POINT OF CARE 182 MG/DL (70-110)
[2016-06-08] MEDS ORDERED: SODIUM CHLORIDE 0.9% 2,000 ML IV ONE (19:58)
[2016-06-08] MEDS: SOD FERRIC GLUC COMPLX/SUCROSE 125 MG in SODIUM CHLORIDE 0.9% 100 ML IV SCH (21:01)
[2016-06-08] MEDS ORDERED: MANNITOL 25%-12.5 GM/50 ML VIAL IVP PRN (21:45)
[2016-06-08] MEDS ORDERED: ALBUMIN HUMAN 25%-12.5GM/50ML IV BOTTLE IV PRN (21:45)
[2016-06-08] MEDS ORDERED: LIDOCAINE HCL/PF 1% 2 ML VIAL ID PRN (21:45)
[2016-06-08 22:47] LABS: GLUCOSE,POINT OF CARE 155 MG/DL (70-110)
[2016-06-08] MEDS: SENNA 187 MG TABLET PO SCH (23:00)
[2016-06-09] MEDS: CefTRIAXone SODIUM 2 GM in DEXTROSE 5%-WATER 50 ML IV SCH ×2 (00:17→20:08)
[2016-06-09] MEDS: GABAPENTIN 100 MG CAPSULE PO SCH ×2 (00:18→20:08)
[2016-06-09] MEDS: MetroNIDAZOLE 500 MG TABLET PO SCH ×4 (00:18→21:27)
[2016-06-09] MEDS: 0.9% SODIUM CHLORIDE 10 ML SYRINGE IVP SCH ×3 (00:19→15:23)
[2016-06-09 00:37] VITALS: BP 145/89
[2016-06-09] MEDS: OxyCODONE HCL 5 MG IR TABLET PO PRN (01:37)
[2016-06-09] MEDS: TraMADol HCL 50 MG TABLET PO PRN (05:44)
[2016-06-09 06:08] LABS: GLUCOSE,POINT OF CARE 125 MG/DL (70-110)
[2016-06-09 07:01] LABS: BASOPHILS # (AUTO) 0.07 K/uL (0.00-0.20); BASOPHILS % (AUTO) 0.5 % (0.0-2.0); EOSINOPHILS # (AUTO) 0.55 K/uL (0.00-0.70); EOSINOPHILS % (AUTO) 3.83 % (1.0-6.0); HEMATOCRIT 28.1 % (41-53); HEMOGLOBIN 8.9 g/dL (13.5-17.5); LYMPHOCYTES # (AUTO) 1.3 K/uL (1.0-4.8); LYMPHOCYTES % (AUTO) 8.8 % (22.0-44.0); MEAN CORPUSCULAR HEMOGLOBIN 29.1 pg (26.0-34.0); MEAN CORPUSCULAR HGB CONC 31.7 G/dL (31.0-37.0); MEAN CORPUSCULAR VOLUME 92 fL (80-100); MONOCYTES # (AUTO) 1.3 K/uL (0.1-1.0); NEUTROPHILS # (AUTO) 11.3 K/uL (1.8-7.7); NEUTROPHILS % (AUTO) 77.9 % (40.0-70.0); PLATELET COUNT (AUTO) 296 K/uL (150-450); RED BLOOD CELL COUNT(AUTO) 3.06 MIL/uL (4.50-5.90); RED CELL DISTRIBUTION WIDTH 22.3 % (11.5-14.5); WHITE BLOOD COUNT (AUTO) 14.5 K/uL (4.5-11.0)
[2016-06-09 07:25] LABS: RBC MORPHOLOGY COMMENT ABNORMAL RBC MORPH
[2016-06-09 07:30] VITALS: BP 138/80
[2016-06-09] MEDS: SEVELAMER CARBONATE 800 MG TABLET PO SCH ×3 (07:30→17:43)
[2016-06-09] MEDS: CALCIUM ACETATE 667 MG CAPSULE PO SCH (07:30)
[2016-06-09] MEDS: EPOETIN ALFA 10,000 UNITS/ML VIAL SQ SCH (08:25)
[2016-06-09] MEDS: PANTOPRAZOLE SODIUM 40 MG DR TABLET PO SCH (09:46)
[2016-06-09] MEDS: METOPROLOL SUCCINATE 100 MG ER TABLET PO SCH (11:19)
[2016-06-09] MEDS: VITAMIN B COMP/VIT C/FOLIC ACID CAPSULE PO SCH (11:19)
[2016-06-09 11:37] LABS: GLUCOSE,POINT OF CARE 193 MG/DL (70-110)
[2016-06-09] MEDS: INSULIN ASPART 100 UNITS/ML SQ PRN (12:49)
[2016-06-09] MEDS: DOCUSATE SODIUM 100 MG CAPSULE PO SCH ×2 (13:47→20:08)
[2016-06-09] MEDS: ACETAMINOPHEN 325 MG TABLET PO SCH ×3 (13:48→20:09)
[2016-06-09 15:15] VITALS: BP 129/76
[2016-06-09] MEDS: ASPIRIN 81 MG CHEWABLE TABLET PO SCH (15:22)
[2016-06-09] MEDS: POLYETHYLENE GLYCOL 3350 17 GM PACKET PO SCH (15:22)
[2016-06-09 17:47] LABS: GLUCOSE COMMENT 1 Received Meds; GLUCOSE,POINT OF CARE 149 MG/DL (70-110)
[2016-06-09] MEDS: ATORVASTATIN CALCIUM 40 MG TABLET PO SCH (20:08)
[2016-06-09] MEDS: SENNA 187 MG TABLET PO SCH (20:09)
[2016-06-09 21:57] LABS: GLUCOSE,POINT OF CARE 157 MG/DL (70-110)
[2016-06-10 00:09] VITALS: BP 107/61
[2016-06-10] MEDS: 0.9% SODIUM CHLORIDE 10 ML SYRINGE IVP SCH ×4 (00:48→23:59)
[2016-06-10 05:47] LABS: GLUCOSE,POINT OF CARE 118 MG/DL (70-110)
[2016-06-10 07:10] VITALS: BP 134/77
[2016-06-10] MEDS: SEVELAMER CARBONATE 800 MG TABLET PO SCH ×3 (07:33→18:46)
[2016-06-10] MEDS: CALCIUM ACETATE 667 MG CAPSULE PO SCH (07:33)
[2016-06-10] MEDS: MetroNIDAZOLE 500 MG TABLET PO SCH ×3 (08:01→19:58)
[2016-06-10] MEDS: METOPROLOL SUCCINATE 100 MG ER TABLET PO SCH (08:01)
[2016-06-10] MEDS: ASPIRIN 81 MG CHEWABLE TABLET PO SCH (08:01)
[2016-06-10] MEDS: PANTOPRAZOLE SODIUM 40 MG DR TABLET PO SCH (08:01)
[2016-06-10] MEDS: POLYETHYLENE GLYCOL 3350 17 GM PACKET PO SCH (10:06)
[2016-06-10] MEDS: VITAMIN B COMP/VIT C/FOLIC ACID CAPSULE PO SCH (10:06)
[2016-06-10] MEDS: DOCUSATE SODIUM 250 MG CAPSULE PO SCH ×2 (10:06→19:58)
[2016-06-10] MEDS: ACETAMINOPHEN 325 MG TABLET PO SCH ×3 (10:06→19:58)
[2016-06-10 12:22] LABS: GLUCOSE,POINT OF CARE 148 MG/DL (70-110)
[2016-06-10] MEDS: INSULIN ASPART 100 UNITS/ML SQ PRN ×2 (12:38→21:39)
[2016-06-10 15:35] VITALS: BP 119/77
[2016-06-10] MEDS ORDERED: SODIUM CHLORIDE 0.9% 250 ML IV ONE (17:21)
[2016-06-10 17:27] LABS: GLUCOSE,POINT OF CARE 136 MG/DL (70-110)
[2016-06-10] MEDS: CefTRIAXone SODIUM 2 GM in DEXTROSE 5%-WATER 50 ML IV SCH (19:20)
[2016-06-10] MEDS: SENNA 187 MG TABLET PO SCH (19:58)
[2016-06-10] MEDS: GABAPENTIN 100 MG CAPSULE PO SCH (19:58)
[2016-06-10] MEDS: ATORVASTATIN CALCIUM 40 MG TABLET PO SCH (19:58)
[2016-06-10 21:37] LABS: GLUCOSE,POINT OF CARE 186 MG/DL (70-110)
[2016-06-11 05:00] VITALS: BP 122/66
[2016-06-11 05:37] LABS: GLUCOSE,POINT OF CARE 128 MG/DL (70-110)
[2016-06-11 06:23] LABS: BASOPHILS % (AUTO) 0.1 % (0.0-2.0); HEMATOCRIT 29.5 % (41-53); HEMOGLOBIN 9.1 g/dL (13.5-17.5); LYMPHOCYTES # (AUTO) 1.8 K/uL (1.0-4.8); LYMPHOCYTES % (AUTO) 14.4 % (22.0-44.0); MEAN CORPUSCULAR HEMOGLOBIN 28.5 pg (26.0-34.0); MEAN CORPUSCULAR HGB CONC 30.9 G/dL (31.0-37.0); MEAN CORPUSCULAR VOLUME 92 fL (80-100); MONOCYTES # (AUTO) 1.6 K/uL (0.1-1.0); MONOCYTES % (AUTO) 13.1 % (2.0-9.0); NEUTROPHILS # (AUTO) 8.3 K/uL (1.8-7.7); NEUTROPHILS % (AUTO) 67.4 % (40.0-70.0); PLATELET COUNT (AUTO) 254 K/uL (150-450); RED BLOOD CELL COUNT(AUTO) 3.21 MIL/uL (4.50-5.90); RED CELL DISTRIBUTION WIDTH 21.9 % (11.5-14.5); WHITE BLOOD COUNT (AUTO) 12.3 K/uL (4.5-11.0)
[2016-06-11 07:06] VITALS: BP 136/79
[2016-06-11] MEDS: OxyCODONE HCL 5 MG IR TABLET PO PRN ×2 (07:39→07:41)
[2016-06-11] MEDS: ACETAMINOPHEN 325 MG TABLET PO SCH ×3 (07:41→20:49)
[2016-06-11] MEDS: SEVELAMER CARBONATE 800 MG TABLET PO SCH ×3 (08:17→17:11)
[2016-06-11] MEDS: CALCIUM ACETATE 667 MG CAPSULE PO SCH (08:17)
[2016-06-11] MEDS: ASPIRIN 81 MG CHEWABLE TABLET PO SCH (09:49)
[2016-06-11] MEDS: METOPROLOL SUCCINATE 100 MG ER TABLET PO SCH (09:49)
[2016-06-11] MEDS: POLYETHYLENE GLYCOL 3350 17 GM PACKET PO SCH (09:49)
[2016-06-11] MEDS: DOCUSATE SODIUM 250 MG CAPSULE PO SCH ×2 (09:49→20:48)
[2016-06-11] MEDS: MetroNIDAZOLE 500 MG TABLET PO SCH ×3 (09:49→20:48)
[2016-06-11] MEDS: PANTOPRAZOLE SODIUM 40 MG DR TABLET PO SCH (09:49)
[2016-06-11] MEDS: VITAMIN B COMP/VIT C/FOLIC ACID CAPSULE PO SCH (09:49)
[2016-06-11] MEDS: 0.9% SODIUM CHLORIDE 10 ML SYRINGE IVP SCH ×3 (09:49→23:29)
[2016-06-11 10:56] LABS: RBC MORPHOLOGY COMMENT ABNORMAL RBC MORPH
[2016-06-11 12:12] LABS: GLUCOSE,POINT OF CARE 156 MG/DL (70-110)
[2016-06-11] MEDS: INSULIN ASPART 100 UNITS/ML SQ PRN ×3 (13:19→20:46)
[2016-06-11 15:14] VITALS: BP 128/73
[2016-06-11] MEDS: CefTRIAXone SODIUM 2 GM in DEXTROSE 5%-WATER 50 ML IV SCH (19:45)
[2016-06-11 20:17] LABS: GLUCOSE COMMENT 1 Received Meds; GLUCOSE,POINT OF CARE 245 MG/DL (70-110)
[2016-06-11] MEDS: ATORVASTATIN CALCIUM 40 MG TABLET PO SCH (20:48)
[2016-06-11] MEDS: GABAPENTIN 100 MG CAPSULE PO SCH (20:48)
[2016-06-11] MEDS: SENNA 187 MG TABLET PO SCH (20:48)
[2016-06-11 21:21] LABS: GLUCOSE COMMENT 1 Received Meds; GLUCOSE,POINT OF CARE 163 MG/DL (70-110)
[2016-06-12 00:31] VITALS: BP 122/69
[2016-06-12 05:48] LABS: GLUCOSE,POINT OF CARE 145 MG/DL (70-110)
[2016-06-12 07:06] VITALS: BP 134/78
[2016-06-12] MEDS: CALCIUM ACETATE 667 MG CAPSULE PO SCH (07:39)
[2016-06-12] MEDS: SEVELAMER CARBONATE 800 MG TABLET PO SCH ×3 (07:39→17:30)
[2016-06-12] MEDS: 0.9% SODIUM CHLORIDE 10 ML SYRINGE IVP SCH ×3 (07:40→23:53)
[2016-06-12] MEDS: EPOETIN ALFA 10,000 UNITS/ML VIAL SQ SCH (07:59)
[2016-06-12] MEDS: POLYETHYLENE GLYCOL 3350 17 GM PACKET PO SCH (07:59)
[2016-06-12] MEDS: MetroNIDAZOLE 500 MG TABLET PO SCH ×3 (07:59→20:09)
[2016-06-12] MEDS: METOPROLOL SUCCINATE 100 MG ER TABLET PO SCH (07:59)
[2016-06-12] MEDS: ASPIRIN 81 MG CHEWABLE TABLET PO SCH (07:59)
[2016-06-12] MEDS: DOCUSATE SODIUM 250 MG CAPSULE PO SCH ×2 (08:00→20:09)
[2016-06-12] MEDS: PANTOPRAZOLE SODIUM 40 MG DR TABLET PO SCH (08:00)
[2016-06-12] MEDS: VITAMIN B COMP/VIT C/FOLIC ACID CAPSULE PO SCH (08:00)
[2016-06-12] MEDS: ACETAMINOPHEN 325 MG TABLET PO SCH ×3 (08:00→20:09)
[2016-06-12 11:42] LABS: GLUCOSE,POINT OF CARE 236 MG/DL (70-110)
[2016-06-12] MEDS: INSULIN ASPART 100 UNITS/ML SQ PRN ×3 (12:58→20:17)
[2016-06-12 15:30] VITALS: BP 125/76
[2016-06-12 18:12] LABS: GLUCOSE COMMENT 1 Received Meds; GLUCOSE,POINT OF CARE 203 MG/DL (70-110)
[2016-06-12] MEDS: CefTRIAXone SODIUM 2 GM in DEXTROSE 5%-WATER 50 ML IV SCH (19:03)
[2016-06-12] MEDS: GABAPENTIN 100 MG CAPSULE PO SCH (20:09)
[2016-06-12] MEDS: SENNA 187 MG TABLET PO SCH (20:09)
[2016-06-12] MEDS: ATORVASTATIN CALCIUM 40 MG TABLET PO SCH (20:09)
[2016-06-12 21:06] LABS: GLUCOSE COMMENT 1 Received Meds; GLUCOSE,POINT OF CARE 193 MG/DL (70-110)
[2016-06-13] MEDS ORDERED: PANT40TA25 PO (04:42)
[2016-06-13] MEDS ORDERED: SENN8.6T90 PO (04:42)
[2016-06-13] MEDS ORDERED: FOLI1CAP2 PO (04:42)
[2016-06-13 05:00] VITALS: BP 121/73
[2016-06-13 05:57] LABS: GLUCOSE,POINT OF CARE 136 MG/DL (70-110)
[2016-06-13 07:50] VITALS: BP 132/71
[2016-06-13] MEDS: SEVELAMER CARBONATE 800 MG TABLET PO SCH ×4 (08:36→21:44)
[2016-06-13] MEDS: VITAMIN B COMP/VIT C/FOLIC ACID CAPSULE PO SCH (08:36)
[2016-06-13] MEDS: DOCUSATE SODIUM 250 MG CAPSULE PO SCH ×2 (08:36→21:11)
[2016-06-13] MEDS: CALCIUM ACETATE 667 MG CAPSULE PO SCH (08:37)
[2016-06-13] MEDS: PANTOPRAZOLE SODIUM 40 MG DR TABLET PO SCH (08:37)
[2016-06-13] MEDS: ACETAMINOPHEN 325 MG TABLET PO SCH ×3 (08:37→21:10)
[2016-06-13] MEDS: POLYETHYLENE GLYCOL 3350 17 GM PACKET PO SCH (08:37)
[2016-06-13] MEDS: MetroNIDAZOLE 500 MG TABLET PO SCH ×3 (08:37→21:11)
[2016-06-13] MEDS: METOPROLOL SUCCINATE 100 MG ER TABLET PO SCH (08:37)
[2016-06-13] MEDS: ASPIRIN 81 MG CHEWABLE TABLET PO SCH (08:37)
[2016-06-13] MEDS: 0.9% SODIUM CHLORIDE 10 ML SYRINGE IVP SCH ×3 (08:42→23:08)
[2016-06-13] MEDS ORDERED: LIDOCAINE HCL/PF 1% 2 ML VIAL INJ ONE (12:00)
[2016-06-13 14:22] LABS: GLUCOSE,POINT OF CARE 160 MG/DL (70-110)
[2016-06-13 15:36] VITALS: BP 140/79
[2016-06-13] MEDS ORDERED: MANNITOL 25%-12.5 GM/50 ML VIAL IVP PRN (18:45)
[2016-06-13] MEDS ORDERED: ALBUMIN HUMAN 25%-12.5GM/50ML IV BOTTLE IV PRN (18:45)
[2016-06-13] MEDS: CefTRIAXone SODIUM 2 GM in DEXTROSE 5%-WATER 50 ML IV SCH (21:10)
[2016-06-13] MEDS: GABAPENTIN 100 MG CAPSULE PO SCH (21:11)
[2016-06-13] MEDS: ATORVASTATIN CALCIUM 40 MG TABLET PO SCH (21:11)
[2016-06-13] MEDS: SENNA 187 MG TABLET PO SCH (21:11)
[2016-06-13] MEDS ORDERED: SODIUM CHLORIDE 0.9% 250 ML IV ONE (21:21)
[2016-06-13] MEDS: INSULIN ASPART 100 UNITS/ML SQ PRN (21:50)
[2016-06-13 21:58] LABS: GLUCOSE,POINT OF CARE 273 MG/DL (70-110)
[2016-06-13 21:58] LABS: GLUCOSE,POINT OF CARE 212 MG/DL (70-110)
[2016-06-13 23:00] VITALS: BP 130/70
[2016-06-14 06:19] LABS: GLUCOSE,POINT OF CARE 225 MG/DL (70-110)
[2016-06-14 07:07] VITALS: BP 139/80
[2016-06-14] MEDS: CALCIUM ACETATE 667 MG CAPSULE PO SCH (07:42)
[2016-06-14] MEDS: SEVELAMER CARBONATE 800 MG TABLET PO SCH ×3 (07:42→17:39)
[2016-06-14] MEDS: 0.9% SODIUM CHLORIDE 10 ML SYRINGE IVP SCH ×3 (08:21→23:33)
[2016-06-14] MEDS: MetroNIDAZOLE 500 MG TABLET PO SCH ×3 (08:22→20:10)
[2016-06-14] MEDS: EPOETIN ALFA 10,000 UNITS/ML VIAL SQ SCH (08:22)
[2016-06-14] MEDS: DOCUSATE SODIUM 250 MG CAPSULE PO SCH ×2 (08:23→20:10)
[2016-06-14] MEDS: ASPIRIN 81 MG CHEWABLE TABLET PO SCH (08:23)
[2016-06-14] MEDS: METOPROLOL SUCCINATE 100 MG ER TABLET PO SCH (08:23)
[2016-06-14] MEDS: PANTOPRAZOLE SODIUM 40 MG DR TABLET PO SCH (08:23)
[2016-06-14] MEDS: POLYETHYLENE GLYCOL 3350 17 GM PACKET PO SCH (08:23)
[2016-06-14] MEDS: ACETAMINOPHEN 325 MG TABLET PO SCH ×3 (08:24→20:10)
[2016-06-14] MEDS: VITAMIN B COMP/VIT C/FOLIC ACID CAPSULE PO SCH (08:24)
[2016-06-14] MEDS: INSULIN ASPART 100 UNITS/ML SQ PRN ×4 (08:29→20:15)
[2016-06-14 12:17] LABS: GLUCOSE,POINT OF CARE 201 MG/DL (70-110)
[2016-06-14 15:26] VITALS: BP 136/81
[2016-06-14] MEDS: SENNA 187 MG TABLET PO SCH (20:10)
[2016-06-14] MEDS: CefTRIAXone SODIUM 2 GM in DEXTROSE 5%-WATER 50 ML IV SCH (20:10)
[2016-06-14] MEDS: GABAPENTIN 100 MG CAPSULE PO SCH (20:10)
[2016-06-14] MEDS: ATORVASTATIN CALCIUM 40 MG TABLET PO SCH (20:15)
[2016-06-14 22:53] LABS: GLUCOSE COMMENT 1 Received Meds; GLUCOSE,POINT OF CARE 254 MG/DL (70-110)
[2016-06-14 22:53] LABS: GLUCOSE COMMENT 1 Received Meds; GLUCOSE,POINT OF CARE 321 MG/DL (70-110)
[2016-06-14 23:40] VITALS: BP 128/71
[2016-06-15] MEDS ORDERED: LIDOCAINE HCL/PF 1% 2 ML VIAL INJ ONE
[2016-06-15] MEDS: TraMADol HCL 50 MG TABLET PO PRN ×2 (04:31→19:51)
[2016-06-15 06:38] LABS: BASOPHILS # (AUTO) 0.05 K/uL (0.00-0.20); BASOPHILS % (AUTO) 0.4 % (0.0-2.0); EOSINOPHILS # (AUTO) 0.67 K/uL (0.00-0.70); EOSINOPHILS % (AUTO) 5.49 % (1.0-6.0); HEMATOCRIT 29.1 % (41-53); HEMOGLOBIN 9.3 g/dL (13.5-17.5); LYMPHOCYTES # (AUTO) 1.8 K/uL (1.0-4.8); LYMPHOCYTES % (AUTO) 14.4 % (22.0-44.0); MEAN CORPUSCULAR HEMOGLOBIN 29.7 pg (26.0-34.0); MEAN CORPUSCULAR HGB CONC 31.8 G/dL (31.0-37.0); MEAN CORPUSCULAR VOLUME 93 fL (80-100); MONOCYTES # (AUTO) 1.4 K/uL (0.1-1.0); MONOCYTES % (AUTO) 11.6 % (2.0-9.0); NEUTROPHILS # (AUTO) 8.4 K/uL (1.8-7.7); NEUTROPHILS % (AUTO) 68.1 % (40.0-70.0); PLATELET COUNT (AUTO) 242 K/uL (150-450); RED BLOOD CELL COUNT(AUTO) 3.12 MIL/uL (4.50-5.90); RED CELL DISTRIBUTION WIDTH 23.8 % (11.5-14.5); WHITE BLOOD COUNT (AUTO) 12.3 K/uL (4.5-11.0)
[2016-06-15 06:54] LABS: CALCIUM, TOTAL 8.8 mg/dL (8.8-10.5); CREATININE 8.52 mg/dL (0.60-1.30); PHOSPHORUS 4.6 mg/dL (2.5-4.9); POTASSIUM 3.7 mmol/L (3.5-5.1)
[2016-06-15 07:14] VITALS: BP 140/78
[2016-06-15] MEDS: CALCIUM ACETATE 667 MG CAPSULE PO SCH (07:42)
[2016-06-15] MEDS: SEVELAMER CARBONATE 800 MG TABLET PO SCH ×3 (07:42→18:04)
[2016-06-15] MEDS: DOCUSATE SODIUM 250 MG CAPSULE PO SCH ×3 (08:15→21:12)
[2016-06-15] MEDS: ASPIRIN 81 MG CHEWABLE TABLET PO SCH (08:15)
[2016-06-15] MEDS: MetroNIDAZOLE 500 MG TABLET PO SCH ×3 (08:15→21:12)
[2016-06-15] MEDS: PANTOPRAZOLE SODIUM 40 MG DR TABLET PO SCH (08:16)
[2016-06-15] MEDS: METOPROLOL SUCCINATE 100 MG ER TABLET PO SCH ×2 (08:16→13:00)
[2016-06-15] MEDS: VITAMIN B COMP/VIT C/FOLIC ACID CAPSULE PO SCH (08:16)
[2016-06-15] MEDS: POLYETHYLENE GLYCOL 3350 17 GM PACKET PO SCH ×2 (08:18→13:00)
[2016-06-15] MEDS: ACETAMINOPHEN 325 MG TABLET PO SCH ×3 (08:18→21:11)
[2016-06-15] MEDS: 0.9% SODIUM CHLORIDE 10 ML SYRINGE IVP SCH ×3 (08:29→23:33)
[2016-06-15 08:58] LABS: GLUCOSE,POINT OF CARE 201 MG/DL (70-110)
[2016-06-15 10:14] LABS: RBC MORPHOLOGY COMMENT ABNORMAL RBC MORPH
[2016-06-15] MEDS: INSULIN ASPART 100 UNITS/ML SQ PRN ×2 (12:51→18:09)
[2016-06-15 13:29] LABS: GLUCOSE COMMENT 1 Received Meds; GLUCOSE,POINT OF CARE 245 MG/DL (70-110)
[2016-06-15] MEDS ORDERED: LIDOCAINE HCL/PF 1% 2 ML VIAL ID PRN (15:00)
[2016-06-15] MEDS ORDERED: MANNITOL 25%-12.5 GM/50 ML VIAL IVP PRN (15:00)
[2016-06-15] MEDS ORDERED: ALBUMIN HUMAN 25%-12.5GM/50ML IV BOTTLE IV PRN (15:00)
[2016-06-15 17:55] VITALS: BP 135/99
[2016-06-15] MEDS: CefTRIAXone SODIUM 2 GM in DEXTROSE 5%-WATER 50 ML IV SCH (20:59)
[2016-06-15] MEDS ORDERED: INSULIN DETEMIR 100 UNITS/ML SQ SCH (21:00)
[2016-06-15] MEDS: GABAPENTIN 100 MG CAPSULE PO SCH (21:12)
[2016-06-15] MEDS: ATORVASTATIN CALCIUM 40 MG TABLET PO SCH (21:12)
[2016-06-15] MEDS: SENNA 187 MG TABLET PO SCH (21:12)
[2016-06-15 22:47] LABS: GLUCOSE COMMENT 1 Received Meds; GLUCOSE,POINT OF CARE 158 MG/DL (70-110)
[2016-06-15 22:51] LABS: GLUCOSE COMMENT 1 Received Meds; GLUCOSE,POINT OF CARE 350 MG/DL (70-110)
[2016-06-16 01:00] VITALS: BP 119/67
[2016-06-16 07:04] LABS: GLUCOSE,POINT OF CARE 158 MG/DL (70-110)
[2016-06-16 07:15] VITALS: BP 126/74
[2016-06-16] MEDS: SEVELAMER CARBONATE 800 MG TABLET PO SCH ×3 (07:44→17:39)
[2016-06-16] MEDS: CALCIUM ACETATE 667 MG CAPSULE PO SCH (07:44)
[2016-06-16] MEDS: INSULIN ASPART 100 UNITS/ML SQ PRN ×4 (07:52→21:19)
[2016-06-16] MEDS: METOPROLOL SUCCINATE 100 MG ER TABLET PO SCH (08:48)
[2016-06-16] MEDS: PANTOPRAZOLE SODIUM 40 MG DR TABLET PO SCH (08:48)
[2016-06-16] MEDS: ACETAMINOPHEN 325 MG TABLET PO SCH ×3 (08:48→20:04)
[2016-06-16] MEDS: MetroNIDAZOLE 500 MG TABLET PO SCH ×3 (08:48→20:04)
[2016-06-16] MEDS: VITAMIN B COMP/VIT C/FOLIC ACID CAPSULE PO SCH (08:48)
[2016-06-16] MEDS: ASPIRIN 81 MG CHEWABLE TABLET PO SCH (08:48)
[2016-06-16] MEDS: POLYETHYLENE GLYCOL 3350 17 GM PACKET PO SCH (08:48)
[2016-06-16] MEDS: DOCUSATE SODIUM 250 MG CAPSULE PO SCH ×2 (08:48→20:04)
[2016-06-16] MEDS: EPOETIN ALFA 10,000 UNITS/ML VIAL SQ SCH (08:52)
[2016-06-16] MEDS: 0.9% SODIUM CHLORIDE 10 ML SYRINGE IVP SCH ×3 (09:50→23:17)
[2016-06-16 14:45] VITALS: BP 137/79
[2016-06-16 15:00] VITALS: BP 137/79
[2016-06-16 15:09] LABS: GLUCOSE,POINT OF CARE 193 MG/DL (70-110)
[2016-06-16] MEDS ORDERED: SODIUM CHLORIDE 0.9% 250 ML IV ONE (15:46)
[2016-06-16 17:42] LABS: GLUCOSE COMMENT 1 Received Meds; GLUCOSE,POINT OF CARE 258 MG/DL (70-110)
[2016-06-16] MEDS: CefTRIAXone SODIUM 2 GM in DEXTROSE 5%-WATER 50 ML IV SCH (19:14)
[2016-06-16] MEDS: SENNA 187 MG TABLET PO SCH (20:04)
[2016-06-16] MEDS: GABAPENTIN 100 MG CAPSULE PO SCH (20:04)
[2016-06-16] MEDS: ATORVASTATIN CALCIUM 40 MG TABLET PO SCH (20:04)
[2016-06-16] MEDS ORDERED: INSULIN DETEMIR 100 UNITS/ML SQ SCH (21:00)
[2016-06-16 21:37] LABS: GLUCOSE COMMENT 1 Repeated; GLUCOSE,POINT OF CARE 365 MG/DL (70-110)
[2016-06-16 23:30] VITALS: BP 124/68
[2016-06-17] MEDS ORDERED: INSLAN SQ (04:50)
[2016-06-17] MEDS ORDERED: TRAM50TA4 PO (04:50)
[2016-06-17] MEDS ORDERED: INSNOV SQ (04:53)
[2016-06-17] MEDS: CALCIUM ACETATE 667 MG CAPSULE PO SCH (07:28)
[2016-06-17] MEDS: SEVELAMER CARBONATE 800 MG TABLET PO SCH ×3 (07:28→17:59)
[2016-06-17] MEDS: MetroNIDAZOLE 500 MG TABLET PO SCH ×4 (07:29→20:36)
[2016-06-17] MEDS: METOPROLOL SUCCINATE 100 MG ER TABLET PO SCH (07:29)
[2016-06-17] MEDS: ACETAMINOPHEN 325 MG TABLET PO SCH ×3 (07:29→20:36)
[2016-06-17] MEDS: VITAMIN B COMP/VIT C/FOLIC ACID CAPSULE PO SCH (07:29)
[2016-06-17] MEDS: ASPIRIN 81 MG CHEWABLE TABLET PO SCH (07:29)
[2016-06-17] MEDS: PANTOPRAZOLE SODIUM 40 MG DR TABLET PO SCH (07:29)
[2016-06-17] MEDS: DOCUSATE SODIUM 250 MG CAPSULE PO SCH ×2 (07:29→20:35)
[2016-06-17] MEDS: POLYETHYLENE GLYCOL 3350 17 GM PACKET PO SCH (07:30)
[2016-06-17] MEDS: 0.9% SODIUM CHLORIDE 10 ML SYRINGE IVP SCH ×3 (07:31→23:08)
[2016-06-17 07:39] VITALS: BP 138/75
[2016-06-17] MEDS: INSULIN ASPART 100 UNITS/ML SQ PRN ×3 (08:03→20:41)
[2016-06-17 10:07] LABS: GLUCOSE,POINT OF CARE 211 MG/DL (70-110)
[2016-06-17 11:17] LABS: GLUCOSE COMMENT 1 Received Meds; GLUCOSE,POINT OF CARE 248 MG/DL (70-110)
[2016-06-17] MEDS ORDERED: SODIUM CHLORIDE 0.9% 2,000 ML IV ONE (13:19)
[2016-06-17 18:01] LABS: GLUCOSE COMMENT 1 Received Meds; GLUCOSE,POINT OF CARE 161 MG/DL (70-110)
[2016-06-17] MEDS: TraMADol HCL 50 MG TABLET PO PRN ×2 (18:31)
[2016-06-17] MEDS: CefTRIAXone SODIUM 2 GM in DEXTROSE 5%-WATER 50 ML IV SCH (19:55)
[2016-06-17] MEDS: GABAPENTIN 100 MG CAPSULE PO SCH (20:35)
[2016-06-17] MEDS: ATORVASTATIN CALCIUM 40 MG TABLET PO SCH (20:36)
[2016-06-17] MEDS: SENNA 187 MG TABLET PO SCH (20:50)
[2016-06-17] MEDS ORDERED: INSULIN DETEMIR 100 UNITS/ML SQ SCH (21:00)
[2016-06-17 21:08] LABS: GLUCOSE COMMENT 1 Received Meds; GLUCOSE,POINT OF CARE 241 MG/DL (70-110)
[2016-06-17 23:41] VITALS: BP 105/69
[2016-06-18 06:17] LABS: GLUCOSE,POINT OF CARE 137 MG/DL (70-110)
[2016-06-18 07:40] VITALS: BP 135/83
[2016-06-18] MEDS: ASPIRIN 81 MG CHEWABLE TABLET PO SCH (08:12)
[2016-06-18] MEDS: SEVELAMER CARBONATE 800 MG TABLET PO SCH ×2 (08:12→12:30)
[2016-06-18] MEDS: 0.9% SODIUM CHLORIDE 10 ML SYRINGE IVP SCH (08:13)
[2016-06-18] MEDS: ACETAMINOPHEN 325 MG TABLET PO SCH (08:13)
[2016-06-18] MEDS: CALCIUM ACETATE 667 MG CAPSULE PO SCH (08:14)
[2016-06-18] MEDS: MetroNIDAZOLE 500 MG TABLET PO SCH (08:14)
[2016-06-18] MEDS ORDERED: ACET-2247 PO (08:26)
[2016-06-18] MEDS ORDERED: MIRALAX PO (08:27)
[2016-06-18] MEDS ORDERED: DSS100 PO (08:30)
[2016-06-18] MEDS: METOPROLOL SUCCINATE 100 MG ER TABLET PO SCH (09:30)
[2016-06-18] MEDS: PANTOPRAZOLE SODIUM 40 MG DR TABLET PO SCH (09:30)
[2016-06-18] MEDS: VITAMIN B COMP/VIT C/FOLIC ACID CAPSULE PO SCH (09:30)
[2016-06-18] MEDS: POLYETHYLENE GLYCOL 3350 17 GM PACKET PO SCH (09:30)
[2016-06-18] MEDS: CefTRIAXone SODIUM 2 GM in DEXTROSE 5%-WATER 50 ML IV ONE ×2 (09:32→10:00)
[2016-06-18] MEDS: DOCUSATE SODIUM 250 MG CAPSULE PO SCH (09:32)
[2016-06-18] MEDS ORDERED: LIDOCAINE HCL/PF 1% 2 ML VIAL IM ONE (12:00)
[2016-06-18] MEDS ORDERED: CefTRIAXone SODIUM 2 GM/VIAL IM ONE (12:00)
[2016-06-18 14:17] LABS: GLUCOSE COMMENT 1 Received Meds; GLUCOSE,POINT OF CARE 186 MG/DL (70-110)
[2016-06-18] MEDS ORDERED: CefTRIAXone 1 GM/DEXTROSE 50 ML IV ONE (18:30)
== END 2016-06-18 14:00 | disposition home health service (06) | DRG 73 ==
LOC: 2WR 17:22
PROVIDERS: ADMIT Physical Medicine & Rehabilitation; ATTEND Physical Medicine & Rehabilitation
PROC: 5A1D60Z (ICD-10-PCS; principal; 2016-06-01)
DX: E11.610 Type 2 diabetes mellitus with diabetic neuropathic arthropathy (principal); N18.6 End stage renal disease; E43 Unspecified severe protein-calorie malnutrition; I12.0 Hypertensive chronic kidney disease with stage 5 chronic kidney disease or end stage renal disease; M86.8X7 Other osteomyelitis, ankle and foot; T87.43 Infection of amputation stump, right lower extremity; L03.115 Cellulitis of right lower limb; E11.69 Type 2 diabetes mellitus with other specified complication; E11.42 Type 2 diabetes mellitus with diabetic polyneuropathy; E11.22 Type 2 diabetes mellitus with diabetic chronic kidney disease; I25.10 Atherosclerotic heart disease of native coronary artery without angina pectoris; E78.5 Hyperlipidemia, unspecified; H40.9 Unspecified glaucoma; M10.9 Gout, unspecified; E66.9 Obesity, unspecified; E11.51 Type 2 diabetes mellitus with diabetic peripheral angiopathy without gangrene; D64.9 Anemia, unspecified; R74.8 Abnormal levels of other serum enzymes; I70.201 Unspecified atherosclerosis of native arteries of extremities, right leg; M16.11 Unilateral primary osteoarthritis, right hip; M17.11 Unilateral primary osteoarthritis, right knee; M47.9 Spondylosis, unspecified; K40.20 Bilateral inguinal hernia, without obstruction or gangrene, not specified as recurrent; Y83.6 Removal of other organ (partial) (total) as the cause of abnormal reaction of the patient, or of later complication, without mention of misadventure at the time of the procedure; R11.2 Nausea with vomiting, unspecified; Z68.34 Body mass index [BMI] 34.0-34.9, adult; B96.20 Unspecified Escherichia coli [E. coli] as the cause of diseases classified elsewhere; Z91.19 Patient's noncompliance with other medical treatment and regimen; Z99.2 Dependence on renal dialysis; Z89.511 Acquired absence of right leg below knee; Z89.021 Acquired absence of right finger(s); Z79.01 Long term (current) use of anticoagulants; Z79.82 Long term (current) use of aspirin; Z98.61 Coronary angioplasty status; Z82.49 Family history of ischemic heart disease and other diseases of the circulatory system; Z22.322 Carrier or suspected carrier of Methicillin resistant Staphylococcus aureus; Z79.4 Long term (current) use of insulin; Z79.899 Other long term (current) drug therapy; Z83.3 Family history of diabetes mellitus; Z80.42 Family history of malignant neoplasm of prostate; Z80.0 Family history of malignant neoplasm of digestive organs; Y83.5 Amputation of limb(s) as the cause of abnormal reaction of the patient, or of later complication, without mention of misadventure at the time of the procedure; Y92.238 Other place in hospital as the place of occurrence of the external cause; Z53.29 Procedure and treatment not carried out because of patient's decision for other reasons; Z56.9 Unspecified problems related to employment
CPT/HCPCS: 73701; 82962; 83036; 83540; 83550; 83735; 84100; 84145; 87070; 87081; 87086; 87106; 87205; 87340; 97110; 97116; 97150; 97162; 97167; 97530; 97535; 99366; J0696; J0713; J0885; J1644; J2916; J3370; J3490; J7030; J7050; J7060; Q0162